=== PATIENT | female | born 1970 | race American Indian/Alaskan Native ===

== ENCOUNTER 2017-03-17 14:02 | Observation (INO) | payer MEDICAID, OTHER ==
[2017-03-17 14:02] VITALS: BMI 32.9
[2017-03-17] MEDS: Albuterol-Ipratrop 3 mg / 0.5 (3 ml) UD IH SCH ×2 (17:00→17:12)
[2017-03-17] MEDS ORDERED: Albuterol-Ipratrop 3 mg / 0.5 (3 ml) UD ONE (17:12)
--- NOTE | 2017-03-17 17:14 | RAD ---
HISTORY: cough, phlegmon COMPARISON: Chest xray performed 07/27/16 TECHNIQUE: Chest PA and lateral FINDINGS: Examination limited by habitus. LUNGS: Mild interstitial prominence. No focal consolidation. Please note that chest x-ray has limited sensitivity for the detection of pulmonary masses. PLEURA: No significant pleural effusion identified. No definite pneumothorax . CARDIOVASCULAR: The cardiomediastinal silhouette appears within normal limits of size. OSSEOUS STRUCTURES: No acute osseous abnormality identified. VISUALIZED UPPER ABDOMEN: Unremarkable. OTHER FINDINGS: None. IMPRESSION: Mild interstitial prominence.
--- NOTE | 2017-03-17 17:18 | C.PDOC ---
History Of Present Illness 46 year old female with PMHx of aneima, DM, asthma, COPD comes to the ED for evaluation of productive cough with green phlegm, and SOB on exertion. Patient reports she went to her PMD 2 weeks ago and got a shot of steroids that made her sugar levels increase, so she wnet back last week and was prescribed Azithromycin and Amoxicillin that she has been taking. Patient reports she had a fever of 102 last night, and again this morning along with post tussive CP. Patient reports she was in a coma for 1 month on 2007 for double pneumonia and 3 years ago she was intubated due to her asthma. Patient denies diarrhea, constipation, abdominal pain, weakness, numbness. Time Seen by Provider: 03/17/17 15:59 Chief Complaint (Nursing): Cough, Cold, Congestion History Per: Patient History/Exam Limitations: no limitations Onset/Duration Of Symptoms: Days Current Symptoms Are (Timing): Still Present Sick Contacts (Context): None Associated Symptoms: Fever, Cough, Sputum. denies: Vomiting, Diarrhea Ear Symptoms: Bilateral: None Severity: None Recent travel outside of the [place]: No Additional History Per: Patient Past Medical History Reviewed: Historical Data, Nursing Documentation, Vital Signs Vital Signs: Last Vital Signs Temp 98.6 F 03/18/17 15:00 Pulse 100 H 03/18/17 15:00 Resp 20 03/18/17 15:00 BP 148/73 03/18/17 15:00 Pulse Ox 96 03/18/17 15:00 - Medical History PMH: Anemia, Arthritis, Asthma, Bronchitis, CHF (POSSIBLY PT STS HAD PNEUMONIA) , COPD, Diabetes, HTN, Peripheral Edema, Pneumonia (2007) Surgical History: Appendectomy - [facility] Procedures ASPIR CURETT UTERUS NEC (11/01/14) UTERINE LES DESTRUCT NEC (11/01/14) Family History: States: Unknown Family Hx Other Family History: Mother of cervical cancer, FMHx of seizures. - Social History Hx Tobacco Use: Yes Hx Alcohol Use: No Hx Substance Use: No - Immunization History Hx Tetanus Toxoid Vaccination: No Hx Influenza Vaccination: No Hx Pneumococcal Vaccination: No Review Of Systems Constitutional: Positive for: Fever. Negative for: Chills Cardiovascular: Positive for: Chest Pain Respiratory: Positive for: Cough, SOB with Excertion Gastrointestinal: Negative for: Nausea, Vomiting, Abdominal Pain Genitourinary: Negative for: Dysuria, Hematuria Musculoskeletal: Negative for: Back Pain Skin: Negative for: Rash Neurological: Negative for: Weakness, Numbness, Headache Physical Exam - Physical Exam Appears: Non-toxic, No Acute Distress Skin: Normal Color, Warm, Dry Head: Atraumatic, Normacephalic Nose: No Discharge, No Deformity Oral Mucosa: Moist Neck: Normal ROM, Supple Chest: Symmetrical Cardiovascular: Rhythm Regular, No Murmur Respiratory: No Rales, No Rhonchi, Wheezing (B/L inspiratory and expiratory) Extremity: Normal ROM, No Pedal Edema, No Calf Tenderness, No Deformity, No Swelling Neurological/Psych: Oriented x3, Normal Speech, Normal Cognition Gait: Steady ED Course And Treatment - Laboratory Results Result Diagrams: 03/17/17 17:30 03/17/17 17:30 O2 Sat by Pulse Oximetry: 100 (On RA) Pulse Ox Interpretation: Normal - Radiology CXR: Interpreted by Me, Viewed By Me CXR Interpretation: Yes: Other (Mild interstitial prominence.) Medical Decision Making Medical Decision Making: Impression : 46 y/o female with productive cough, and SOB on exertion Plan: * EKG * Blood work * CXR * Duoneb 3 ml IH * Nebulizer treatment * Influenza A B test Disposition Discussed With Dr.: Lotus Leon Doctor Will See Patient In The: Hospital Counseled Patient/Family Regarding: Studies Performed, Diagnosis - Disposition Disposition: HOSPITALIZED Disposition Time: 17:37 Condition: GUARDED - Clinical Impression Clinical Impression: Bronchospasm, COPD (chronic obstructive pulmonary disease) - Scribe Statement The provider has reviewed the documentation as recorded by the [place] All medical record entries made by the Scribe were at my direction and personally dictated by me. I have reviewed the chart and agree that the record accurately reflects my personal performance of the history, physical exam, medical decision making, and the department course for this patient. I have also personally directed, reviewed, and agree with the discharge instructions and disposition. Decision To Admit - Pt Status Changed To: Hospital Disposition Of: Observation - . Bed Request Type: Regular Patient Diagnosis: Bronchospasm, COPD (chronic obstructive pulmonary disease)
[2017-03-17 17:38] LABS: BASO # 0.1 K/uL (0.0-0.2); BASO % 0.8 % (0.0-2.0); EOS # 0.1 K/uL (0.0-0.7); EOS % 0.5 % (0.0-4.0); HEMATOCRIT 34.6 % (34.0-47.0); LYMPH # 1.3 K/uL (1.0-4.3); LYMPH % 11.3 % (20.0-40.0); MEAN CORPUSCULAR HEMOGLOBIN 28.5 pg (27.0-31.0); MEAN CORPUSCULAR HGB CONC 33.5 g/dL (33.0-37.0); MEAN PLATELET VOLUME 9.5 fL (7.2-11.7); MONO # 0.2 K/uL (0.0-0.8); MONO % 1.7 % (0.0-10.0); NRBC % 0.1 % (0.0-2.0); RED CELL DISTRIBUTION WIDTH 13.9 % (11.5-14.5); WHITE BLOOD COUNT 11.3 K/uL (4.8-10.8)
[2017-03-17 17:49] LABS: ALB/GLOB RATIO 1.2 (1.0-2.1); ALKALINE PHOSPHATASE 90 U/L (38-126); ALT/SGPT 14 U/L (9-52); AST/SGOT 16 U/L (14-36); BILIRUBIN,TOTAL 0.4 mg/dL (0.2-1.3); BLOOD UREA NITROGEN 16 mg/dL (7-17); CALCIUM 8.6 mg/dl (8.6-10.4); CARBON DIOXIDE 26 mmol/L (22-30); CHLORIDE 100 mmol/L (98-107); GFR AFRICAN-AMERICAN > 60; GLUCOSE,RANDOM 266 mg/dL (65-105); POTASSIUM 3.9 mmol/L (3.6-5.2); SODIUM 133 mmol/L (132-148); TOTAL PROTEIN 7.1 g/dL (6.3-8.3)
[2017-03-17 18:32] VITALS: RESP 20
[2017-03-17] MEDS ORDERED: Albuterol-Ipratrop 3 mg / 0.5 (3 ml) UD INH SCH (20:00)
[2017-03-17] MEDS ORDERED: Albuterol-Ipratrop 3 mg / 0.5 (3 ml) UD INH STA (21:59)
[2017-03-17] MEDS: (Novolog) Insulin Aspart, Recombinant 100 u/ml 10 ml vial SC SCH (22:08)
[2017-03-17] MEDS: Insulin Detemir 100 units/ml Vial (Levemir) SC SCH (22:10)
[2017-03-17] MEDS: MethylPREDNISolone 40 mg Vial IVP SCH (22:12)
[2017-03-17] MEDS: Moxifloxacin IV 400mg/250ml NS 400 MG/250 ML BAG IVPB SCH (22:31)
[2017-03-18] MEDS: Albuterol-Ipratrop 3 mg / 0.5 (3 ml) UD INH SCH ×5 (01:29→19:40)
[2017-03-18] MEDS: Fluticasone-Salmeterol 500-50mcg Diskus INH SCH ×2 (07:40→19:39)
[2017-03-18] MEDS: (Novolog) Insulin Aspart, Recombinant 100 u/ml 10 ml vial SC SCH ×7 (07:57→21:54)
[2017-03-18] MEDS: Enoxaparin 40 mg Syringe SC SCH (09:42)
[2017-03-18] MEDS: MethylPREDNISolone 40 mg Vial IVP SCH (09:43)
--- NOTE | 2017-03-18 16:29 | CP.PCM.PN ---
Subjective - Date & Time of Evaluation Date of Evaluation: 03/18/17 Time of Evaluation: 09:35 - Subjective Subjective: PGY-[address] Leon Patient seen and examined at bedside. Patient complains of wheezes and coughs overnight. Patient is currently resting comfortably with occasional coughs. Patient denies fever, chills, shortness of breath, chest pain, or abdoimal pain. Objective - Vital Signs/Intake and Output Vital Signs (last 24 hours): Temp Pulse Resp BP Pulse Ox 98.6 F 100 H 20 148/73 96 03/18/17 15:00 03/18/17 15:00 03/18/17 15:00 03/18/17 15:00 03/18/17 15:00 Intake and Output: 03/18/17 03/18/17 06:59 18:59 Intake Total 780 Balance 780 - Medications Medications: Current Medications Albuterol/Ipratropium (Duoneb 3 Mg/0.5 Mg (3 Ml) Ud) 3 ml INH RQ4 [facility] Enalapril Maleate (Vasotec) 10 mg PO DAILY [facility] Last Admin: 03/18/17 09:42 Dose: 10 mg Enoxaparin Sodium (Lovenox) 40 mg SC DAILY [facility] Last Admin: 03/18/17 09:42 Dose: 40 mg Furosemide (Lasix) 40 mg PO DAILY [facility] Last Admin: 03/18/17 09:42 Dose: 40 mg Gabapentin (Neurontin) 400 mg PO BID [facility] Last Admin: 03/18/17 09:42 Dose: 400 mg Moxifloxacin HCl (Avelox Iv 400mg/250ml Ns) 400 mg in 250 mls @ 167 mls/hr IVPB Q24H [facility] Last Admin: 03/17/17 22:31 Dose: 167 mls/hr Insulin Aspart (Novolog) 0 unit SC ACHS [facility] PRN Reason: Protocol Last Admin: 03/18/17 11:30 Dose: 4 unit Insulin Aspart (Novolog) 8 unit SC AC [facility] Last Admin: 03/18/17 11:30 Dose: 8 unit Insulin Detemir (Levemir) 30 unit SC HS [facility] Last Admin: 03/17/17 22:10 Dose: 30 unit Methylprednisolone (Solu-Medrol) 40 mg IVP DAILY [facility] Last Admin: 03/18/17 09:43 Dose: 40 mg Montelukast Sodium (Singulair) 10 mg PO HS [facility] Last Admin: 03/17/17 22:12 Dose: 10 mg Pneumococcal Polyvalent Vaccine (Pneumovax 23 Vaccine) 0.5 ml IM .ONCE ONE Stop: 03/19/17 10:01 Fluticasone/Salmeterol (Advair Diskus 500/50) 1 puff INH RQ12 [facility] Last Admin: 03/18/17 07:40 Dose: Not Given Spironolactone (Aldactone) 25 mg PO TID [facility] Last Admin: 03/18/17 14:03 Dose: 25 mg - Labs Labs: 03/17/17 17:30 03/17/17 17:30 - Constitutional Appears: Non-toxic, No Acute Distress - Head Exam Head Exam: ATRAUMATIC - Eye Exam Eye Exam: Normal appearance - ENT Exam ENT Exam: Mucous Membranes Moist - Neck Exam Neck Exam: Normal Inspection - Respiratory Exam Respiratory Exam: Wheezes, NORMAL BREATHING PATTERN. absent: Respiratory Distress - Cardiovascular Exam Cardiovascular Exam: REGULAR RHYTHM, +S1, +S2. absent: Murmur - GI/Abdominal Exam GI & Abdominal Exam: Soft, Normal Bowel Sounds - Extremities Exam Extremities Exam: Normal Inspection - Neurological Exam Neurological Exam: Alert, Awake, Oriented x3 - Psychiatric Exam Psychiatric exam: Normal Affect, Normal Mood - Skin Skin Exam: Dry, Warm Assessment and Plan - Assessment and Plan (Free Text) Assessment: COPD Exacerbation -Duoneb 3ml inh Q4h -Solu medrol 40mg daily -Advair Diskus Q12 -Singulair 10mg -Moxifloxacin IV Hypertension -Enalapril 10mg po -Lasix 40mg PO -Aldactone 25mg PO TID Diabetes -Levemir 30 units SC HS -Aspart 8 units SC AC -ISS -Gabapentin 400mg po BID Prophylactic measures -Lovenox -Protonix All management per Dr. Leon
[2017-03-18] MEDS: Moxifloxacin IV 400mg/250ml NS 400 MG/250 ML BAG IVPB SCH (21:52)
[2017-03-18] MEDS: Insulin Detemir 100 units/ml Vial (Levemir) SC SCH (21:53)
[2017-03-18 23:31] VITALS: TEMP 98
[2017-03-19] MEDS: Albuterol-Ipratrop 3 mg / 0.5 (3 ml) UD INH SCH ×4 (00:04→12:04)
--- NOTE | 2017-03-19 07:01 | HP ---
HISTORY OF PRESENT ILLNESS: Ms. Norris is a 46-year-old female, who comes in complaining of shortness of breath, weakness, fatigue, tiredness, cough, not responding to outpatient therapy, repeated antibiotic and steroid. Patient came to the ER, advised admission. PHYSICAL EXAMINATION: GENERAL: Patient is awake, alert, and oriented. VITAL SIGNS: Temperature 98, pulse 90. HEENT: Within normal limits. NECK: Supple. CHEST: Symmetrical. HEART: Regular. ABDOMEN: Soft. EXTREMITIES: No edema. IMPRESSION: Patient suffers from , bronchitis, chronic obstructive pulmonary disease. The patient to get bedrest, supportive care, bronchodilator. Lotus Leon MD
[2017-03-19 08:07] VITALS: BP 151/75; PULSE 97; O2SAT 95
[2017-03-19 08:18] LABS: BASO # 0.1 K/uL (0.0-0.2); BASO % 0.4 % (0.0-2.0); EOS % 0.3 % (0.0-4.0); HEMATOCRIT 31.5 % (34.0-47.0); LYMPH # 3.2 K/uL (1.0-4.3); LYMPH % 22.6 % (20.0-40.0); MEAN CELL VOLUME 84.6 fL (81.0-99.0); MEAN CORPUSCULAR HEMOGLOBIN 29.2 pg (27.0-31.0); MEAN CORPUSCULAR HGB CONC 34.5 g/dL (33.0-37.0); MEAN PLATELET VOLUME 9.6 fL (7.2-11.7); MONO # 0.9 K/uL (0.0-0.8); MONO % 6.6 % (0.0-10.0); RED CELL DISTRIBUTION WIDTH 14.3 % (11.5-14.5); WHITE BLOOD COUNT 14.3 K/uL (4.8-10.8)
[2017-03-19] MEDS: (Novolog) Insulin Aspart, Recombinant 100 u/ml 10 ml vial SC SCH ×4 (08:30→12:30)
[2017-03-19 08:55] LABS: ALB/GLOB RATIO 1.2 (1.0-2.1); ALKALINE PHOSPHATASE 76 U/L (38-126); ALT/SGPT 10 U/L (9-52); AST/SGOT 12 U/L (14-36); BILIRUBIN,TOTAL 0.3 mg/dL (0.2-1.3); BLOOD UREA NITROGEN 19 mg/dL (7-17); CALCIUM 8.3 mg/dl (8.6-10.4); CARBON DIOXIDE 29 mmol/L (22-30); CHLORIDE 98 mmol/L (98-107); GFR AFRICAN-AMERICAN > 60; GLUCOSE,RANDOM 304 mg/dL (65-105); POTASSIUM 3.4 mmol/L (3.6-5.2); SODIUM 132 mmol/L (132-148); TOTAL PROTEIN 6.3 g/dL (6.3-8.3)
[2017-03-19] MEDS ORDERED: Benzocaine/Menthol (Cepacol) Lozenge MT PRN (09:53)
--- NOTE | 2017-03-19 09:56 | CP.PCM.PN ---
Subjective - Date & Time of Evaluation Date of Evaluation: 03/19/17 Time of Evaluation: 09:00 - Subjective Subjective: PGY-[address] Leon Patient seen examined at bedside. No acute events overnight. Patient reports her coughs and wheezes have improved, but now complains of itchy throat. She denies of fever, chills, shortness of breath, chest pain, nausea, or vomiting. Objective - Vital Signs/Intake and Output Vital Signs (last 24 hours): Temp Pulse Resp BP Pulse Ox 98 F 97 H 20 151/75 H 95 03/19/17 08:05 03/19/17 08:05 03/19/17 08:05 03/19/17 08:05 03/19/17 08:05 Intake and Output: 03/19/17 03/19/17 06:59 18:59 Intake Total 0 Balance 0 - Medications Medications: Current Medications Albuterol/Ipratropium (Duoneb 3 Mg/0.5 Mg (3 Ml) Ud) 3 ml INH RQ4 [facility] Last Admin: 03/19/17 03:41 Dose: 3 ml Benzocaine/Menthol (Cepacol Sore Throat) 1 [place] Q4 PRN PRN Reason: Cough Enalapril Maleate (Vasotec) 10 mg PO DAILY [facility] Last Admin: 03/18/17 09:42 Dose: 10 mg Enoxaparin Sodium (Lovenox) 40 mg SC DAILY [facility] Last Admin: 03/18/17 09:42 Dose: 40 mg Furosemide (Lasix) 40 mg PO DAILY [facility] Last Admin: 03/18/17 09:42 Dose: 40 mg Gabapentin (Neurontin) 400 mg PO BID [facility] Last Admin: 03/18/17 18:11 Dose: 400 mg Moxifloxacin HCl (Avelox Iv 400mg/250ml Ns) 400 mg in 250 mls @ 167 mls/hr IVPB Q24H [facility] Last Admin: 03/18/17 21:52 Dose: 167 mls/hr Insulin Aspart (Novolog) 0 unit SC ACHS [facility] PRN Reason: Protocol Last Admin: 03/19/17 08:30 Dose: 4 unit Insulin Aspart (Novolog) 8 unit SC AC [facility] Last Admin: 03/19/17 08:30 Dose: 8 unit Insulin Detemir (Levemir) 30 unit SC HS [facility] Last Admin: 03/18/17 21:53 Dose: 30 unit Methylprednisolone (Solu-Medrol) 40 mg IVP DAILY [facility] Last Admin: 03/18/17 09:43 Dose: 40 mg Montelukast Sodium (Singulair) 10 mg PO HS [facility] Last Admin: 03/18/17 21:52 Dose: 10 mg Pantoprazole Sodium (Protonix Ec Tab) 40 mg PO DAILY [facility] Pneumococcal Polyvalent Vaccine (Pneumovax 23 Vaccine) 0.5 ml IM .ONCE ONE Stop: 03/19/17 10:01 Fluticasone/Salmeterol (Advair Diskus 500/50) 1 puff INH RQ12 [facility] Last Admin: 03/18/17 19:39 Dose: Not Given Spironolactone (Aldactone) 25 mg PO TID [facility] Last Admin: 03/18/17 18:11 Dose: 25 mg - Labs Labs: 03/19/17 08:00 03/19/17 08:00 - Constitutional Appears: Non-toxic, No Acute Distress - Head Exam Head Exam: ATRAUMATIC, NORMOCEPHALIC - Eye Exam Eye Exam: Normal appearance - ENT Exam ENT Exam: Mucous Membranes Moist - Neck Exam Neck Exam: Normal Inspection - Respiratory Exam Respiratory Exam: Clear to Ausculation Bilateral, NORMAL BREATHING PATTERN. absent: Respiratory Distress - Cardiovascular Exam Cardiovascular Exam: REGULAR RHYTHM, +S1, +S2 - GI/Abdominal Exam GI & Abdominal Exam: Soft, Normal Bowel Sounds. absent: Tenderness - Extremities Exam Extremities Exam: Normal Capillary Refill, Normal Inspection - Neurological Exam Neurological Exam: Alert, Awake, Oriented x3 - Psychiatric Exam Psychiatric exam: Normal Affect, Normal Mood - Skin Skin Exam: Dry, Warm Assessment and Plan - Assessment and Plan (Free Text) Assessment: COPD Exacerbation -Duoneb 3ml inh Q4h -Solu medrol 40mg daily -Advair Diskus Q12 -Singulair 10mg -Robitussin po prn -Start Medrol dose pack once discharged from the hospital Hypertension -Enalapril 10mg po -Lasix 40mg PO -Aldactone 25mg PO TID Diabetes -Levemir 30 units SC HS -Aspart 8 units SC AC -ISS -Gabapentin 400mg po BID Leukocytosis -Likely due to IV steroid -Afebrile Prophylactic measures -Lovenox -Protonix All management per Dr. Leon
[2017-03-19] MEDS ORDERED: Pantoprazole 40 mg EC Tab PO SCH (10:00)
[2017-03-19] MEDS ORDERED: Influenza Vaccine 60 mcg/0.5 mL SYR (4YR UP) IM ONE (10:00)
[2017-03-19] MEDS ORDERED: Pneumococcal 23-Valent Vaccine IM ONE (10:00)
[2017-03-19] MEDS: MethylPREDNISolone 40 mg Vial IVP SCH (10:15)
[2017-03-19] MEDS: Enoxaparin 40 mg Syringe SC SCH (10:15)
[2017-03-19] MEDS ORDERED: Potassium Chloride 20 mEq ER Tab PO ONE (10:30)
[2017-03-19] MEDS ORDERED: guaiFENesin DM 100 mg-10 mg/5 ml UD PO PRN (11:50)
[2017-03-19] MEDS: Fluticasone-Salmeterol 500-50mcg Diskus INH SCH (12:04)
--- NOTE | 2017-03-19 15:55 | PCM.HF ---
Heart Failure Core Measure - Heart Failure Left Ventricular Function to be assessed after discharge: Yes BEAU Inhibitor Prescribed: Yes Beta-Edwin Prescribed: None Contraindication/Reason for not providing: COPD Angiotensin II Receptor Edwin Prescribed: No Contraindication/Reason for not providing: on beau AnticoagulationTherapy for Atrial Fibrillation/Atrialflutter: No Aldosterone Antagonist Prescribed: Yes Implantable Cardioverter Defibrillator Therapy: No Cardiac Resynchronization Therapy Prescribed: No - Follow up Will be discharged to: Home Follow Up Date (must be within 7 days from discharge): 03/23/17 Follow Up Time: 09:00
== END 2017-03-19 15:51 | disposition home or self-care (01) ==
LOC: C.ER 14:02 → C.9E 17:37 → C.3T 18:05
PROVIDERS: ADMIT Internal Medicine Pulmonary Disease; ATTEND Internal Medicine Pulmonary Disease
DX: J44.1 Chronic obstructive pulmonary disease with (acute) exacerbation (principal); I50.9 Heart failure, unspecified; I11.0 Hypertensive heart disease with heart failure; E11.9 Type 2 diabetes mellitus without complications
CPT/HCPCS: 36415; 71020; 80053; 82948; 83880; 84484; 85025; 87804; 90471; 90674; 90732; 94640; 99285; G0378; J1650; J2280; J2920